=== PATIENT | male | born 1985 | race American Indian/Alaskan Native ===

== ENCOUNTER 2021-07-16 01:10 | Emergency (ER) | payer SELFPAY ==
[2021-07-16 01:38] VITALS: BP 142/88
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
== END 2021-07-16 08:30 | disposition left against medical advice (07) ==
LOC: ED 01:10
DX: M79.604 Pain in right leg (principal); G89.29 Other chronic pain; F17.200 Nicotine dependence, unspecified, uncomplicated; Z72.89 Other problems related to lifestyle
CPT/HCPCS: 99282

== ENCOUNTER 2021-07-17 01:09 | Emergency (ER) | payer SELFPAY ==
[2021-07-17 01:15] VITALS: BP 142/88
[2021-07-17] MEDS ORDERED: IBUPROFEN 600 MG TAB PO ONE (04:17)
[2021-07-17] MEDS ORDERED: ONDANSETRON 4 MG ODT TAB PO ONE (04:17)
[2021-07-17] MEDS ORDERED: HYDROcodone/ACETAMINOPHEN 7.5-325MG TAB PO ONE (04:17)
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
== END 2021-07-17 06:19 | disposition home or self-care (01) ==
LOC: ED 01:09
DX: M25.562 Pain in left knee (principal); G89.4 Chronic pain syndrome; G62.9 Polyneuropathy, unspecified; Z79.899 Other long term (current) drug therapy; F17.200 Nicotine dependence, unspecified, uncomplicated
CPT/HCPCS: 99282; J3490; Q0162